=== PATIENT | male | born 1995 | race Caucasian/White ===

== ENCOUNTER 2017-01-27 01:29 | Emergency (ER) | payer OTHER ==
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
[2017-01-27 01:44] VITALS: BP 138/89; PULSE 83; RESP 16; TEMP 98.1; O2SAT 97
== END 2017-01-27 01:44 | disposition home or self-care (01) ==
DX: Z04.3 Encounter for examination and observation following other accident (principal); V49.49XA Driver injured in collision with other motor vehicles in traffic accident, initial encounter; Y92.410 Unspecified street and highway as the place of occurrence of the external cause